=== PATIENT | male | born 1950 | race Caucasian/White ===

== ENCOUNTER 2018-04-17 10:33 | Emergency (ER) | payer MEDICARE, OTHER ==
[~2018-04-17] VITALS: Ht 175.3 cm; Wt 95.5 kg
[2018-04-17] MEDS ORDERED: BUPR300T34 PO (10:47)
[2018-04-17] MEDS ORDERED: LEVO100T5 PO (10:47)
[2018-04-17] MEDS ORDERED: MORPHINE 4 MG/ML 1ML VIAL/SYRINGE (J2270) IM ONE (11:00)
[2018-04-17] MEDS ORDERED: ASPI81TA26 PO (11:12)
[2018-04-17 11:36] LABS: BASO # 0.1 10^3/uL (0.0-0.2); BASO % 1.6 % (0.0-1.0); EOS # 0.2 10^3/uL (0.0-0.50); EOS % 2.9 % (0.0-3.0); HEMATOCRIT 48.4 % (42.0-52.0); HEMOGLOBIN 15.5 g/dl (13.5-17.5); LYMPH % 39.1 % (24.0-44.0); MEAN CORPUSCULAR HEMOGLOBIN 27.9 pg (27.0-33.0); MEAN CORPUSCULAR VOLUME 87.1 fl (80.0-96.0); MONO # 0.3 10^3/uL (0.0-0.8); MONO % 6.6 % (0.0-5.0); NEUTROPHILS # 2.6 10^3/uL (1.8-7.7); NEUTROPHILS % 49.4 % (36.0-66.0); PLATELET COUNT, AUTOMATED 109 10^3/uL (150-450); RED BLOOD COUNT 5.56 10^6/uL (4.30-6.10); WHITE BLOOD COUNT 5.2 10^3/uL (4.0-10.0)
[2018-04-17] MEDS ORDERED: MORPHINE 4 MG/ML 1ML VIAL/SYRINGE (J2270) IV ONE ×2 (11:45→19:00)
[2018-04-17] MEDS ORDERED: ADACEL/BOOSTRIX VACCINE (DIPHTH/PERTUSS/ACELL/TETANUS)0.5ML SYR (90715) IM ONE (11:45)
[2018-04-17 11:53] LABS: PARTIAL THROMBOPLASTIN TIME 23.5 SECONDS (25.4-37.6); PROTHROMBIN TIME 13.3 SECONDS (12.1-14.4)
--- NOTE | 2018-04-17 11:59 | REP ---
LEFT HAND COMPLETE: 04/17/2018 CLINICAL HISTORY: Trauma, left 5th and 4th digit. FINDINGS: No prior study. There has been a traumatic amputation at the midshaft of the middle phalanx of the 5th digit with some bone fragments in the adjacent soft tissues and exposed bone. There is no involvement of the PIP joint. I do not see fracture or focal lesion of the proximal metacarpal. The 4th digit may have a soft tissue injury along its ulnar aspect of the proximal phalanx but no fracture or focal bone lesion identified nor foreign body. Degenerative changes at some of the IP joints and MCP joints, particularly the 1st, 3rd, and 4th. No fractures of the metacarpals. Degenerative changes of the greater and lesser multangular bone relating to each other and the distal pole of the scaphoid. IMPRESSION: 1. Traumatic amputation mid shaft middle phalanx 5th digit with bone fragments embedded in the soft tissues and exposed bone. There may be some soft tissue injury to the 4th digit ulnar aspect but no foreign body and no underlying bony acute finding. There are degenerative changes at multiple joints as described. Electronically Signed by Pj Hills MD 04/17/2018 09:51 P
[2018-04-17] MEDS ORDERED: NS 1,000 ML IV ONE (12:15)
[2018-04-17] MEDS ORDERED: cefTRIAXone SOD 2 GM in D5W MINI-BAG PLUS 50 ML IV ONE (12:15)
[2018-04-17 12:27] LABS: BLOOD UREA NITROGEN 22 MG/DL (7-18); CALCIUM LEVEL 8.4 MG/DL (8.8-10.2); CARBON DIOXIDE LEVEL 22 MEQ/L (21-32); CHLORIDE LEVEL 114 MEQ/L (98-107); CREATININE FOR GFR 0.98 MG/DL (0.70-1.30); GLOMERULAR FILTRATION RATE > 60.0 (>49); GLUCOSE, FASTING 124 MG/DL (70-100); POTASSIUM SERUM 5.5 MEQ/L (3.5-5.1); SODIUM LEVEL 142 MEQ/L (136-145)
[2018-04-17] MEDS ORDERED: ASPI1TAB20 PO (12:48)
[2018-04-17] MEDS ORDERED: PRAZ1CAP PO (12:48)
[2018-04-17] MEDS ORDERED: LEVO25TA34 PO (12:48)
[2018-04-17] MEDS ORDERED: LIDOCAINE 1% MDV 20ML VIAL As Ordered ONE (15:20)
[2018-04-17] MEDS ORDERED: BUPIVACAINE HCL 0.5% 10 ML VIAL As Ordered ONE (15:20)
[2018-04-17] MEDS ORDERED: BUPIVACAINE HCL 0.5% 10 ML VIAL SC ONE (15:30)
[2018-04-17] MEDS ORDERED: LIDOCAINE 1% MDV 20ML VIAL IM ONE (15:30)
[2018-04-17 15:43] LABS: ETHYL ALCOHOL (ETHANOL) < 0.003 % (0.000-0.010)
[2018-04-17] MEDS ORDERED: AUGM875T28 PO (19:22)
[2018-04-17] MEDS ORDERED: HYDR-3713 PO (19:22)
[2018-04-17] MEDS ORDERED: HYDR-3715 PO (19:32)
[2018-04-17 21:46] VITALS: BP 125/75
--- NOTE | 2018-04-30 17:07 | CR ---
DATE OF CONSULTATION: 04/17/2018 INDICATION: Left hand amputation. HISTORY OF PRESENT ILLNESS: Dwight is a very pleasant 67-year-old gentleman who had his left hand crushed between a cow and the gait of a door. He had a glove on his left hand, but he suffered a traumatic complete amputation of the left small finger through his middle phalanx and then a complex laceration over the dorsal aspect of the ring finger. He is right-hand dominant. He does not smoke or abuse alcohol or illicit drugs. The patient brought the stump of the finger in, but there was significant crush component. As soon as the on-call doctor was notified of this patient, emergency room (ER) was informed to give the patient intravenous (IV) antibiotics and update his tetanus status. I did discuss this case with the on-call physician and agreed to assume care of the patient. For the patient's full past medical history, past surgical history, medications, allergies, social history, and review of systems please see the admitting ER intake form. PHYSICAL EXAMINATION: This is a well-appearing gentleman, slightly younger than is stated age. He is alert and oriented times three. NEUROLOGIC: Appropriate mood and very pleasant affect. CARDIOVASCULAR: Radial pulse 2+. PULMONARY: Nonlabored breathing. ABDOMEN: Soft, nontender, nondistended. SKIN: I did perform a detailed examination of the left hand after I performed a digital block. Please see the full operative report for the procedure details, but once the patient was comfortable. I removed his dressings, which revealed a complete amputation of the small finger through the middle phalanx with exposed bone and fascia as well as a complex laceration through the dorsal aspect of the ring finger, measuring roughly 28-29 mm in length. That extended from the proximal interphalangeal (PIP) joint to the eponychial fold. The patient had intact sensation to light touch prior to the injection in the ring finger. He had moderate swelling throughout his hand. X-rays, three views, left hand obtained in the ER available for my review. It shows a crush injury amputation through the middle phalanx of the small finger. No fractures visible in the remaining proximal phalanx. No fractures visible in the ring finger or in the hand. ASSESSMENT AND PLAN: Mr. Black is a gentleman with a crush injury to the left hand, resulting in a traumatic amputation of the small finger and a complex laceration of the ring finger. We discussed indications for replant given that this was a dirtier wound that was a crush injury. This was not amendable to re-plant, and I recommended revision amputation. He was agreeable to that. I also recommended a thorough irrigation and debridement, removal of all nonviable tissue, and closure of the ring finger. The risks and benefits of the irrigation and debridement, revision amputation, and wound closure were discussed with the patient. Written informed consent was obtained. PROCEDURE NOTE: After obtaining written informed consent, I performed a digital block using 1% lidocaine and a 25-gauge needle. This was done to the ring and small fingers. After adequate analgesia, the dressings were removed. Then I performed the physical exam. I then used a Betadine-soaked sterile 4 x 4 gauze sponges to clean the entire hand, wrist, and forearm. I then proceeded to extensively irrigate the ring and small fingers using over 2 liters of normal saline. There was actually very little gross contamination. I saw no signs of any type of pieces of dirt, manure, grass, etc. After this irrigation, I then sterilely prepped the entire hand, wrist, and forearm with new sterile 4 x 4 gauze sponges soaked in Betadine. I created a sterile field using blue towels and drapes from the operating room (OR). The detailed hand set was used. I started with debridement and addressing the ring finger first. Some devitalized epidermal tissues was sharp excise with a 15 blade. I palpated the deeper tissue. There did not appear to be any disruption to the nail itself. I used three 3-0 Monocryl simple sutures to reapproximate the deep dermal tissue between the skin flap between the laceration edges. I then used 4-0 Prolene in a simple fashion to suture the skin, and the wound was nicely reapproximated. I then proceeded with a revision amputation of the small finger. After confirming adequate analgesia, I used tenotomy scissors and forceps. The rongeur was then used to remove the remainder the middle phalanx in a piecemeal fashion. The entire remainder the middle phalanx was successfully removed. I should mention that I applied a finger tourniquet to the base of the small digit using sterile glove. With all bone removed, I then used a fresh 15 blade to sharply excise some of the epidermis that seemed to have some dirt impregnated within it. Once I had entirely clean tissue, I reassessed the wound, found that this was amendable to primary wound closure, and there would be no need to remove the condyles. I used 3-0 Monocryl to reapproximate some of the deeper tissue, take tension off the skin. Placed three simple sutures. I then proceeded with an epidermal closure using 4-0 Prolene in a simple fashion starting at the midpoint of the wound. I was able to bring some of the palmar tissue somewhat dorsal. I then proceeded with simple sutures both radially and ulnarly. As impending dog ears were encountered, the skin from the dog ear was sharply excised and then the wound closed additional Prolene sutures. I was able to obtain a primary wound closure of the entire digit. The finger tourniquet was then removed, and there was excellent perfusion of the digit. I then injected about 6 mL of 0.5% Marcaine without epinephrine for a long-acting anesthetic that was to the ring and small fingers. I then applied Adaptic nonadherent gauze dressing followed by a bulky sterile dressing to both the ring and small fingers. The hand was then placed into a bulky dressing and wrapped loosely with an Sergey bandage. The patient and ER provider were instructed to give the patient antibiotics, Augmentin, for a 10-day supply. The patient was counseled on wound care, the importance elevation, and following up in the office within 4-5 days for a wound check. All the patient's questions were answered. He tolerated the procedure well. CATHY
== END 2018-04-17 21:48 | disposition home or self-care (01) ==
LOC: M ED 10:33
DX: S68.627A Partial traumatic transphalangeal amputation of left little finger, initial encounter (principal); S61.215A Laceration without foreign body of left ring finger without damage to nail, initial encounter; W23.0XXA Caught, crushed, jammed, or pinched between moving objects, initial encounter; Y93.79 Activity, other specified sports and athletics; Y93.89 Activity, other specified; Y99.0 Civilian activity done for income or pay; E03.9 Hypothyroidism, unspecified; F43.10 Post-traumatic stress disorder, unspecified; Z87.891 Personal history of nicotine dependence; Z79.899 Other long term (current) drug therapy
CPT/HCPCS: 11044; 13132; 13133; 73130; 80048; 85025; 85610; 85730; 90471; 90715; 96361; 96365; 96375; 96376; 99284; G0480; J0696; J2270

== ENCOUNTER → 2018-05-29 | Outpatient (REF) | payer MEDICARE, OTHER ==
[~2018-05-29] MED LIST: ASPI1TAB20 PO; ASPI81TA26 PO; AUGM875T28 PO; BUPR300T34 PO; HYDR-3713 PO; HYDR-3715 PO; LEVO100T5 PO; LEVO25TA34 PO; PRAZ1CAP PO
[2018-05-29 16:02] LABS: BASO # 0.1 10^3/uL (0.0-0.2); BASO % 1.3 % (0.0-1.0); EOS # 0.2 10^3/uL (0.0-0.50); EOS % 2.7 % (0.0-3.0); HEMOGLOBIN 16.2 g/dl (13.5-17.5); LYMPH # 2.5 10^3/uL (1.5-4.5); MEAN CORPUSCULAR HGB CONC 33.1 g/dl (32.0-36.5); MEAN CORPUSCULAR VOLUME 84.8 fl (80.0-96.0); MONO # 0.4 10^3/uL (0.0-0.8); MONO % 7.9 % (0.0-5.0); NEUTROPHILS # 2.4 10^3/uL (1.8-7.7); NEUTROPHILS % 42.7 % (36.0-66.0); PLATELET COUNT, AUTOMATED 179 10^3/uL (150-450); RED BLOOD COUNT 5.78 10^6/uL (4.30-6.10); WHITE BLOOD COUNT 5.6 10^3/uL (4.0-10.0)
[2018-05-29 17:21] LABS: ERYTHROCYTE SEDIMENTATION RATE 1 mm/hr (0-20)
== END ==
LOC: M LABDRAW1 15:40
PROVIDERS: ATTEND Orthopaedic Surgery
DX: S68.627D Partial traumatic transphalangeal amputation of left little finger, subsequent encounter (principal)